=== PATIENT | male | born 1950 | race Caucasian/White ===

== ENCOUNTER 2018-05-07 15:35 | Outpatient (CLI) | payer MEDICARE, OTHER ==
[~2018-05-07 15:35] MED LIST: GLUC1TAB21 PO; LORA0.5T PO; MILK THISTLE PO; NAPR220C15 PO; OMEP40CA37 PO; SORA200T2 PO; [UNRECOGNIZED DRUG - CODE] PO
[2018-05-07 16:46] LABS: BASOPHILS % (AUTO) 0.3 % (0-1); EOSINOPHILS # (AUTO) 0.1 X10'3 (0-0.9); EOSINOPHILS % (AUTO) 1.8 % (0-6); HEMATOCRIT 33.3 % (42.0-52.0); HEMOGLOBIN 11.3 g/dl (14.0-17.9); LYMPHOCYTES # (AUTO) 0.8 X10'3 (1.1-4.8); LYMPHOCYTES % (AUTO) 10.4 % (21-51); MEAN CORPUSCULAR HEMOGLOBIN 32.1 PG (27.0-31.0); MEAN CORPUSCULAR HGB CONC 33.9 % (33.0-36.5); MEAN CORPUSCULAR VOLUME 94.8 FL (78-98); MEAN PLATELET VOLUME 7.2 FL (7.4-10.4); MONOCYTES # (AUTO) 0.9 X10'3 (0-0.9); MONOCYTES % (AUTO) 11.9 % (2-12); NEUTROPHILS # (AUTO) 5.8 X10'3 (1.8-7.7); NEUTROPHILS % (AUTO) 75.6 % (42-75); PLATELET COUNT 274 X10'3 (140-440); RED BLOOD COUNT 3.51 X10'6 (4.70-6.10); WHITE BLOOD COUNT 7.7 X10'3 (4.5-11.0)
[2018-05-07 17:11] LABS: ALANINE AMINOTRANSFERASE 51 U/L (12-78); ALBUMIN 2.8 G/DL (3.4-5.0); ALBUMIN/GLOBULIN RATIO 0.7 (1.1-1.5); ALKALINE PHOSPHATASE 170 IU/L (46-116); AMYLASE 72 U/L (25-115); ANION GAP 8 (8-16); ASPARTATE AMINO TRANSFERASE 54 U/L (10-37); BILIRUBIN,TOTAL 0.5 MG/DL (0.1-1.0); BLOOD UREA NITROGEN 27 MG/DL (7-18); BUN/CREATININE RATIO 27.3 (5.4-32.0); CALCIUM 8.9 MG/DL (8.5-10.1); CHLORIDE 102 MMOL/L (99-107); CREATININE 0.99 MG/DL (0.60-1.10); GLUCOSE 125 MG/DL (70-104); LIPASE 90 U/L (73-393); SODIUM 137 MMOL/L (135-145); TOTAL CARBON DIOXIDE 26.7 MMOL/L (24-32); TOTAL PROTEIN 6.8 G/DL (6.4-8.2); eGFR 75 ML/MIN
== END 2018-05-07 23:59 | disposition home or self-care (01) ==
LOC: LAB 15:35
PROVIDERS: ATTEND Specialist
DX: C22.0 Liver cell carcinoma (principal); Z87.891 Personal history of nicotine dependence; Z72.89 Other problems related to lifestyle
CPT/HCPCS: 36415; 80053; 82150; 83690; 85025

== ENCOUNTER 2020-07-20 11:15 | Emergency (ER) | payer MEDICARE, OTHER ==
[~2020-07-20] VITALS: Ht 167.6 cm; Wt 65.5 kg
[~2020-07-20 11:15] MED LIST changes: +OMEP40CA13 PO; -OMEP40CA37 PO
[2020-07-20] MEDS ORDERED: TETanus/Pertussis (Acell)/Diphther VAC/PF (Tdap-Adult) 0.5ml syringe IMVAC ONE (11:25)
[2020-07-20] MEDS ORDERED: fentaNYL/PF 50MCG/1 ML 2ML syringe IV ONE (11:25)
[2020-07-20] MEDS ORDERED: LIDOcaine 1% W/epiNEPHrine 1:200,000 10ml vial IJ ONE (11:25)
[2020-07-20] MEDS ORDERED: LIDOcaine 1% w/epiNEPHrine 1:200,000 30ml vial IJ ONE (11:35)
[2020-07-20] MEDS ORDERED: iohexol 350MG/ML 100ml bottle IV ONE (11:39)
[2020-07-20] MEDS ORDERED: normal saline 1000ML IV soln IVB ONE (11:40)
[2020-07-20] MEDS ORDERED: ceFAZolin 1GM/D5W- ADD-VANTAGE 50 ML IV ONE (11:40)
[2020-07-20 11:56] LABS: BASOPHILS % (AUTO) 0.2 % (0-1); EOSINOPHILS # (AUTO) 0.1 X10'3 (0-0.9); EOSINOPHILS % (AUTO) 1.1 % (0-6); HEMATOCRIT 35.2 % (42.0-52.0); LYMPHOCYTES # (AUTO) 0.7 X10'3 (1.1-4.8); LYMPHOCYTES % (AUTO) 6.1 % (21-51); MEAN CORPUSCULAR HEMOGLOBIN 32.4 PG (27.0-31.0); MEAN CORPUSCULAR HGB CONC 34.2 g/dL (33.0-36.5); MEAN CORPUSCULAR VOLUME 94.6 FL (78-98); MEAN PLATELET VOLUME 7.5 FL (7.4-10.4); MONOCYTES # (AUTO) 0.6 X10'3 (0-0.9); MONOCYTES % (AUTO) 5.8 % (2-12); NEUTROPHILS # (AUTO) 9.5 X10'3 (1.8-7.7); NEUTROPHILS % (AUTO) 86.8 % (42-75); PLATELET COUNT 209 X10'3 (140-440); RED BLOOD COUNT 3.72 X10'6 (4.70-6.10); RED CELL DISTRIBUTION WIDTH 12.8 % (11.5-14.5)
[2020-07-20 12:07] LABS: PARTIAL THROMBOPLASTIN TIME 29 SECONDS (22-32)
[2020-07-20 12:08] LABS: ALANINE AMINOTRANSFERASE 32 U/L (12-78); ALBUMIN 3.9 G/DL (3.4-5.0); ALBUMIN/GLOBULIN RATIO 1.2 (1.1-1.5); ALKALINE PHOSPHATASE 67 IU/L (46-116); ANION GAP 8 (8-16); ASPARTATE AMINO TRANSFERASE 31 U/L (10-37); BILIRUBIN,TOTAL 0.4 MG/DL (0.1-1.0); BLOOD UREA NITROGEN 27 MG/DL (7-18); BUN/CREATININE RATIO 22.3 (5.4-32.0); CALCIUM 8.6 MG/DL (8.5-10.1); CHLORIDE 103 MMOL/L (99-107); CREATININE 1.21 MG/DL (0.60-1.10); GLUCOSE 121 MG/DL (70-104); POTASSIUM 4.1 MMOL/L (3.5-5.1); SODIUM 135 MMOL/L (135-145); TOTAL CARBON DIOXIDE 24.3 MMOL/L (24-32); TOTAL PROTEIN 7.2 G/DL (6.4-8.2); eGFR 59 ML/MIN
[2020-07-20] MEDS ORDERED: LORA-268 PO (13:44)
[2020-07-20] MEDS ORDERED: AMLO5TAB PO (13:44)
[2020-07-20] MEDS ORDERED: HYDR-4353 PO (13:44)
[2020-07-20] MEDS ORDERED: GLUC100017 PO (13:44)
[2020-07-20] MEDS ORDERED: LISI10TA4 PO (13:44)
[2020-07-20] MEDS ORDERED: famotidine/PF 10 mg/ml inj IV ONE (14:40)
[2020-07-20] MEDS ORDERED: ceFAZolin 1000mg inj ONE ×4 (14:41→16:24)
[2020-07-20] MEDS ORDERED: meperidine/PF 25mg/ml syringe IV PRN ×3 (15:55)
[2020-07-20] MEDS ORDERED: morphine 2 MG/ML inj. syringe IV PRN (15:55)
[2020-07-20] MEDS ORDERED: morphine 4 MG/ML inj SYRINge IV PRN (15:55)
[2020-07-20] MEDS ORDERED: ondansetron/PF 4mg/2ml inj IV PRN (15:55)
[2020-07-20] MEDS ORDERED: ringers solution, lacted 1,000 ML IV SCH (15:55)
[2020-07-20] MEDS ORDERED: proCHLORperazine 10 MG/2 ml inj IV PRN (15:55)
[2020-07-20] MEDS ORDERED: sevoflurane 250ml liquid IH ONE (15:56)
[2020-07-20] MEDS ORDERED: midazolam 2 mg/2 ml injection ONE (15:58)
[2020-07-20] MEDS ORDERED: fentaNYL/PF 50MCG/1 ML 2ML syringe ONE (15:58)
[2020-07-20] MEDS ORDERED: propofol inj 20 ML IV ONE (16:16)
[2020-07-20 17:06] VITALS: BP 140/92
--- NOTE | 2020-07-20 17:11 | NUR ---
Received from OR via LEE, accompanied by Anesthesiologist CRISTOBAL and report given by Anesthesiolgist. 20 GA PIV TESSE RUNING LR AT 100ML/HR. CHAYITO WRAP TO LEFT CALF WITH (+) CSM INCLUDING CAP REFILL AND PEDAL PULSE. HEMOVAC PLACED IN THE OR. VS STABLE. PT USING URINAL. MEDICATED FOR PAIN UPON ARRIVAL. Addendum: 07/20/20 at 1728 by Husam Bentley RN, RN Amended: Links added.
[2020-07-20 17:16] VITALS: BP 136/94
[2020-07-20 17:26] VITALS: BP 130/87
[2020-07-20 17:36] VITALS: BP 137/88
--- NOTE | 2020-07-20 17:46 | NUR ---
PATIENT AND FAMILY AND THEY HAVE VERBALIZED UNDERSTANDING, OPPORTUNITY TO ASK QUESTIONS GIVEN AND PATIENT COMFORTABLE WITH DC. IV TAKEN OUT WITHOUT COMPLICATION. PATIENT HAS MET ALL DC CRITERIA FOR DC HOME. I HAVE REVIEWED D/C INSTRUCTIONS WITH OUT VIA WHEELCHAIR WHERE PATIENT WAS TAKEN HOME WITH ALL BELONGINGS. FAMILY GAVE PATIENT TRANSPORT HOME. INSTRUCTED TO ELEVATED LEFT LE ANKLE ABOVE KNEE AND KNEE ABOVE THE HEART. REINFORCED WITH WITH UPON DC. DRESSINGS ALL CDI. Addendum: 07/20/20 at 1756 by Husam Martinez - WHITNEY OLSON Amended: Links added.
== END 2020-07-20 17:46 | disposition home or self-care (01) ==
LOC: ER 11:15 → PAS 15:00 → PACU 15:00 → ER 17:46
DX: S86.822A Laceration of other muscle(s) and tendon(s) at lower leg level, left leg, initial encounter (principal); S81.812A Laceration without foreign body, left lower leg, initial encounter; S50.312A Abrasion of left elbow, initial encounter; V86.59XA Driver of other special all-terrain or other off-road motor vehicle injured in nontraffic accident, initial encounter; Y93.89 Activity, other specified; Y92.488 Other paved roadways as the place of occurrence of the external cause; Y99.8 Other external cause status
CPT/HCPCS: 12001; 20103; 36415; 71045; 73590; 73706; 80053; 85025; 85610; 85730; 86885; 86900; 86901; 90471; 90715; 93005; 96365; 96375; 99285; J0690; J2250; J2704; J3010; J3490; J7030; Q9967; 70450; A4618; A6449; A7000

== ENCOUNTER 2020-07-25 08:17 | Outpatient (CLI) | payer MEDICARE, OTHER ==
[~2020-07-25 08:17] MED LIST changes: +AMLO5TAB PO; +GLUC100017 PO; -GLUC1TAB21 PO; +HYDR-4353 PO; +LISI10TA4 PO; +LORA-268 PO; -LORA0.5T PO; -MILK THISTLE PO; -NAPR220C15 PO; -OMEP40CA13 PO; -SORA200T2 PO; -[UNRECOGNIZED DRUG - CODE] PO
== END 2020-07-25 09:55 | disposition home or self-care (01) ==
LOC: WOUND CARE 08:17 → EDSTATUS 08:20 → WOUND CARE 09:55
PROVIDERS: ATTEND Nurse Practitioner Family
DX: T81.89XA Other complications of procedures, not elsewhere classified, initial encounter (principal); S81.812A Laceration without foreign body, left lower leg, initial encounter; L97.222 Non-pressure chronic ulcer of left calf with fat layer exposed; L91.8 Other hypertrophic disorders of the skin; I10 Essential (primary) hypertension; K74.60 Unspecified cirrhosis of liver; H26.9 Unspecified cataract; Z87.891 Personal history of nicotine dependence; Z85.05 Personal history of malignant neoplasm of liver; V86.59XA Driver of other special all-terrain or other off-road motor vehicle injured in nontraffic accident, initial encounter; Y93.89 Activity, other specified; Y92.488 Other paved roadways as the place of occurrence of the external cause; Y99.8 Other external cause status; X58.XXXA Exposure to other specified factors, initial encounter; Y92.89 Other specified places as the place of occurrence of the external cause
CPT/HCPCS: G0463

== ENCOUNTER 2020-08-01 08:07 | Outpatient (CLI) | payer MEDICARE, OTHER | END 2020-08-01 23:59 | disposition home or self-care (01) | LOC: WOUND CARE 08:07 → EDSTATUS 08:20 → WOUND CARE 23:59 | PROVIDERS: ATTEND Nurse Practitioner Family | DX: T81.89XD Other complications of procedures, not elsewhere classified, subsequent encounter (principal); S81.812D Laceration without foreign body, left lower leg, subsequent encounter; L97.222 Non-pressure chronic ulcer of left calf with fat layer exposed; L91.8 Other hypertrophic disorders of the skin; I10 Essential (primary) hypertension; K74.60 Unspecified cirrhosis of liver; H26.9 Unspecified cataract; Z87.891 Personal history of nicotine dependence; Y83.8 Other surgical procedures as the cause of abnormal reaction of the patient, or of later complication, without mention of misadventure at the time of the procedure; X58.XXXD Exposure to other specified factors, subsequent encounter | CPT/HCPCS: G0463 ==

== ENCOUNTER 2020-08-08 08:09 | Outpatient (CLI) | payer MEDICARE, OTHER ==
[~2020-08-08 08:09] MED LIST changes: +GLUC1TAB21 PO; +LORA0.5T PO; +MILK THISTLE PO; +NAPR220C15 PO; +OMEP40CA13 PO; +SORA200T2 PO; +[UNRECOGNIZED DRUG - CODE] PO
== END 2020-08-08 23:59 | disposition home or self-care (01) ==
LOC: WOUND CARE 08:09
PROVIDERS: ATTEND Nurse Practitioner Family
DX: T81.89XD Other complications of procedures, not elsewhere classified, subsequent encounter (principal); S81.812D Laceration without foreign body, left lower leg, subsequent encounter; L97.222 Non-pressure chronic ulcer of left calf with fat layer exposed; L91.8 Other hypertrophic disorders of the skin; I10 Essential (primary) hypertension; K74.60 Unspecified cirrhosis of liver; H26.9 Unspecified cataract; Z85.05 Personal history of malignant neoplasm of liver; Z87.891 Personal history of nicotine dependence; Y83.8 Other surgical procedures as the cause of abnormal reaction of the patient, or of later complication, without mention of misadventure at the time of the procedure; X58.XXXD Exposure to other specified factors, subsequent encounter
CPT/HCPCS: G0463

== ENCOUNTER 2020-08-15 08:10 | Outpatient (CLI) | payer MEDICARE, OTHER ==
[~2020-08-15 08:10] MED LIST changes: -GLUC1TAB21 PO; -LORA0.5T PO; -MILK THISTLE PO; -NAPR220C15 PO; -OMEP40CA13 PO; -SORA200T2 PO; -[UNRECOGNIZED DRUG - CODE] PO
[2020-08-15] MEDS ORDERED: LIDOcaine 2% 5ml jelly ONE (08:35)
== END 2020-08-15 23:59 | disposition home or self-care (01) ==
LOC: WOUND CARE 08:10
PROVIDERS: ATTEND Nurse Practitioner Family
DX: T81.89XD Other complications of procedures, not elsewhere classified, subsequent encounter (principal); S81.812D Laceration without foreign body, left lower leg, subsequent encounter; L97.222 Non-pressure chronic ulcer of left calf with fat layer exposed; L91.8 Other hypertrophic disorders of the skin; I10 Essential (primary) hypertension; K74.60 Unspecified cirrhosis of liver; H26.9 Unspecified cataract; Z85.05 Personal history of malignant neoplasm of liver; Z87.891 Personal history of nicotine dependence; Y83.8 Other surgical procedures as the cause of abnormal reaction of the patient, or of later complication, without mention of misadventure at the time of the procedure; X58.XXXD Exposure to other specified factors, subsequent encounter
CPT/HCPCS: 97597

== ENCOUNTER 2020-08-22 08:15 | Outpatient (CLI) | payer MEDICARE, OTHER ==
[2020-08-22] MEDS ORDERED: LIDOcaine 2% 5ml jelly ONE (08:39)
== END 2020-08-22 23:59 | disposition home or self-care (01) ==
LOC: WOUND CARE 08:15
PROVIDERS: ATTEND Nurse Practitioner Family
DX: T81.89XD Other complications of procedures, not elsewhere classified, subsequent encounter (principal); L97.222 Non-pressure chronic ulcer of left calf with fat layer exposed; L91.8 Other hypertrophic disorders of the skin; I10 Essential (primary) hypertension; K74.60 Unspecified cirrhosis of liver; H26.9 Unspecified cataract; K21.9 Gastro-esophageal reflux disease without esophagitis; Z85.05 Personal history of malignant neoplasm of liver; Z87.891 Personal history of nicotine dependence; Y83.8 Other surgical procedures as the cause of abnormal reaction of the patient, or of later complication, without mention of misadventure at the time of the procedure
CPT/HCPCS: 97597

== ENCOUNTER 2020-08-29 08:04 | Outpatient (CLI) | payer MEDICARE, OTHER ==
[2020-08-29] MEDS ORDERED: LIDOcaine 2% 5ml jelly ONE (08:26)
== END 2020-08-29 23:59 | disposition home or self-care (01) ==
LOC: WOUND CARE 08:04
PROVIDERS: ATTEND Nurse Practitioner Family
DX: T81.89XD Other complications of procedures, not elsewhere classified, subsequent encounter (principal); L97.222 Non-pressure chronic ulcer of left calf with fat layer exposed; L91.8 Other hypertrophic disorders of the skin; I10 Essential (primary) hypertension; K74.60 Unspecified cirrhosis of liver; H26.9 Unspecified cataract; K21.9 Gastro-esophageal reflux disease without esophagitis; Z85.05 Personal history of malignant neoplasm of liver; Z87.891 Personal history of nicotine dependence; Y83.8 Other surgical procedures as the cause of abnormal reaction of the patient, or of later complication, without mention of misadventure at the time of the procedure
CPT/HCPCS: 97597

== ENCOUNTER 2020-09-21 08:10 | Outpatient (CLI) | payer MEDICARE ==
[2020-09-21] MEDS ORDERED: LIDOcaine 2% 5ml jelly ONE (08:41)
== END 2020-09-21 23:59 | disposition home or self-care (01) ==
LOC: WOUND CARE 08:10 → EDSTATUS 08:30 → WOUND CARE 23:59
PROVIDERS: ATTEND Nurse Practitioner
DX: E11.621 Type 2 diabetes mellitus with foot ulcer (principal); L97.512 Non-pressure chronic ulcer of other part of right foot with fat layer exposed; E11.319 Type 2 diabetes mellitus with unspecified diabetic retinopathy without macular edema; E11.65 Type 2 diabetes mellitus with hyperglycemia; E11.69 Type 2 diabetes mellitus with other specified complication; M86.8X7 Other osteomyelitis, ankle and foot; E11.40 Type 2 diabetes mellitus with diabetic neuropathy, unspecified; M10.9 Gout, unspecified; E66.9 Obesity, unspecified; I11.0 Hypertensive heart disease with heart failure; I50.9 Heart failure, unspecified; E78.5 Hyperlipidemia, unspecified; M19.90 Unspecified osteoarthritis, unspecified site; H26.9 Unspecified cataract; K21.9 Gastro-esophageal reflux disease without esophagitis; F32.9 Major depressive disorder, single episode, unspecified; F41.9 Anxiety disorder, unspecified; F03.90 Unspecified dementia, unspecified severity, without behavioral disturbance, psychotic disturbance, mood disturbance, and anxiety; F40.240 Claustrophobia; Z68.36 Body mass index [BMI] 36.0-36.9, adult; Z87.891 Personal history of nicotine dependence; Z85.05 Personal history of malignant neoplasm of liver
CPT/HCPCS: 11042

== ENCOUNTER → 2024-04-29 | Outpatient (CLI) | payer MEDICARE ==
[~2024-04-29] MED LIST changes: +LISI10TA27 PO; -LISI10TA4 PO
== END | disposition home or self-care (01) ==
LOC: RAD 09:19
DX: C79.89 Secondary malignant neoplasm of other specified sites (principal); C80.1 Malignant (primary) neoplasm, unspecified; J43.9 Emphysema, unspecified; R00.1 Bradycardia, unspecified
CPT/HCPCS: 71046; 93005